=== PATIENT | female | born 1945 | race Caucasian/White ===

== ENCOUNTER → 2016-11-10 | Outpatient (CLI) | payer MEDICARE, BC ==
--- NOTE | 2016-11-10 17:52 | US ---
EXAMINATION TYPE: US carotid duplex BILAT DATE OF EXAM: 11/10/2016 5:18 PM COMPARISON: NONE CLINICAL HISTORY: I65.22 CAROTID STENOSIS. Bruit EXAM MEASUREMENTS: RIGHT: Peak Systolic Velocity (PSV) cm/sec ----- Right CCA: 93.9 ----- Right ICA: 95.6 ----- Right ECA: 103.0 ICA/CCA ratio: 1.0 RIGHT: End Diastole cm/sec ----- Right CCA: 19.8 ----- Right ICA: 38.7 ----- Right ECA: 11.1 LEFT: Peak Systolic Velocity (PSV) cm/sec ----- Left CCA: 97.8 ----- Left ICA: 95.3 ----- Left ECA: 91.9 ICA/CCA ratio: 1.0 LEFT: End Diastole cm/sec ----- Left CCA: 24.1 ----- Left ICA: 20.2 ----- Left ECA: 14.9 VERTEBRALS (direction of flow): Right Vertebral: Antegrade Left Vertebral: Antegrade Bilateral wall thickening. Plaque seen in left bulb. No significant stenosis or elevated velocities . IMPRESSION: There is antegrade flow in the vertebral arteries. The images and measurements suggest 1 5-25% stenosis in both internal carotid arteries. Criteria for Assigning % of Stenosis / Diameter reduction (Estimation based on the indirect measurements of the internal carotid artery velocities (ICA PSV). 1. Normal (no stenosis)=ICA PSV < 125 cm/s: ratio < 2.0: ICA EDV<40 cm/s. 2. Less than 50% stenosis=ICA PSV < 125 cm/s: ratio < 2.0: ICA EDV<40 cm/s. 3. 50 to 69% stenosis=ICA PSV of 125 to 230 cm/s: ration 2.0 ? 4.0: ICA EDV 40-100 cm/s. 4. Greater than 70% stenosis to near occlusion= ICA PSV > 230 cm/s: ratio > 4.0: ICA EDV > 100 cm/s. 5. Near occlusion= ICA PSV velocities may be low or undetectable: variable ratio and ICA EDV. 6. Total occlusion=unable to detect flow.
== END | disposition home or self-care (01) ==
LOC: RADUSWWP 16:46
PROVIDERS: ATTEND Family Medicine
DX: I65.29 Occlusion and stenosis of unspecified carotid artery (principal)
CPT/HCPCS: 93880

== ENCOUNTER → 2017-06-21 | Outpatient (CLI) | payer MEDICARE, BC ==
--- NOTE | 2017-06-22 13:59 | MM ---
Reason for exam: screening (asymptomatic). Last mammogram was performed 1 year and 5 months ago. History: Patient is postmenopausal. Physical Findings: A clinical breast exam by your physician is recommended on an annual basis and results should be correlated with mammographic findings. MG 3D Screening Mammo W/Cad Bilateral CC and MLO view(s) were taken. Prior study comparison: February 03, 2016, bilateral MG 3d screening mammo w/cad. July 04, 2014, bilateral MG screening mammo w CAD. The breast tissue is almost entirely fat. Finding: There are typically benign vascular calcifications in both breasts. There is a chronic nodularity in the right breast. There is no discrete abnormality. ASSESSMENT: Benign, BI-RAD 2 RECOMMENDATION: Routine screening mammogram of both breasts in 1 year.
== END | disposition home or self-care (01) ==
LOC: RADMAMWWP 07:49
PROVIDERS: ATTEND Obstetrics & Gynecology
DX: Z12.31 Encounter for screening mammogram for malignant neoplasm of breast (principal)
CPT/HCPCS: 77063; G0202

== ENCOUNTER → 2018-06-28 | Outpatient (CLI) | payer MEDICARE, BC ==
--- NOTE | 2018-06-29 09:10 | MM ---
Reason for exam: screening (asymptomatic). Last mammogram was performed 1 year ago. History: Patient is postmenopausal. Physical Findings: A clinical breast exam by your physician is recommended on an annual basis and results should be correlated with mammographic findings. MG 3D Screening Mammo W/Cad Bilateral CC and MLO view(s) were taken. Prior study comparison: June 21, 2017, bilateral MG 3d screening mammo w/cad. February 03, 2016, bilateral MG 3d screening mammo w/cad. There are scattered fibroglandular densities. No suspicious abnormality. No significant changes when compared with prior studies. ASSESSMENT: Negative, BI-RAD 1 RECOMMENDATION: Routine screening mammogram of both breasts in 1 year.
== END | disposition home or self-care (01) ==
LOC: RADMAMWWP 13:48
PROVIDERS: ATTEND Family Medicine
DX: Z12.31 Encounter for screening mammogram for malignant neoplasm of breast (principal)
CPT/HCPCS: 77063; 77067

== ENCOUNTER → 2019-07-10 | Outpatient (CLI) | payer MEDICARE, BC ==
--- NOTE | 2019-07-10 10:08 | BD ---
EXAMINATION TYPE: Axial Bone Density DATE OF EXAM: 07/10/2019 COMPARISON: NONE CLINICAL HISTORY: Postmenopausal female, disorder of bone. Height: 5 FT 3 1/2 IN Weight: 135 FRAX RISK QUESTIONS: Alcohol (3 or more units per day): NO Family History (Parent hip fracture): NO Glucocorticoids (More than 3mos): NO (Ex: prednisone, prednisolone, methylprednisolone, dexamethasone, and hydrocortisone). History of Fracture in Adulthood: NO Secondary Osteoporosis: 1. Type 1 Diabetes: NO 2. Hyperthyroidism: NO 3. Menopause before 45: NO 4. Malnutrition: NO 5. Chronic liver disease: NO Rheumatoid Arthritis: NO Current Tobacco Use: NO RISK FACTORS HISTORY OF: Active: YES Postmenopausal woman: UNSURE APPROX 55 MEDICATIONS: Additional Medications: LOVASTATIN, ATTENOLOL Additional History: EXAM MEASUREMENTS: Bone mineral densitometry was performed using the [employer] System. Bone mineral density as measured about the Lumbar spine is: ----- L1-L4(G/cm2): 0.908 T Score Values are as follows: ----- L2: -2.7 ----- L3: -1.8 ----- L4: -2.1 ----- L1-L4: -2.3 Bone mineral density has: INCREASED 0.1 % since study of: 2015 Bone mineral density about the R hip (g/cm2): 0.688 Bone mineral density about the L hip (g/cm2): 0.663 T Score values are as follows: -----R Neck: -2.5 -----L Neck: -2.7 -----R Total: -2.5 -----L Total: -2.6 Bone mineral density has: DECREASED -5.5 % since study of: 2016 IMPRESSION: Osteoporosis (T Score less than -2.5) remains present. There remains increased fracture risk and therapy is usually indicated based on age. Re-Screen 1-2 years. NOTE: T-SCORE=SD OF THE YOUNG ADULT MEAN.
== END | disposition home or self-care (01) ==
LOC: RADBDWWP 09:13
PROVIDERS: ATTEND Obstetrics & Gynecology
DX: M81.0 Age-related osteoporosis without current pathological fracture (principal); Z78.0 Asymptomatic menopausal state
CPT/HCPCS: 77080

== ENCOUNTER → 2019-07-22 | Outpatient (CLI) | payer MEDICARE, BC ==
--- NOTE | 2019-07-22 11:59 | MM ---
Reason for exam: screening (asymptomatic). Last mammogram was performed 1 year and 1 month ago. History: Patient is postmenopausal. Physical Findings: A clinical breast exam by your physician is recommended on an annual basis and results should be correlated with mammographic findings. MG 3D Screening Mammo W/Cad Bilateral CC and MLO view(s) were taken. Prior study comparison: June 28, 2018, bilateral MG 3d screening mammo w/cad. June 21, 2017, bilateral MG 3d screening mammo w/cad. There are scattered fibroglandular densities. There are benign appearing vascular calcifications in the right breast. There is no discrete abnormality. ASSESSMENT: Benign, BI-RAD 2 RECOMMENDATION: Routine screening mammogram of both breasts in 1 year.
== END | disposition home or self-care (01) ==
LOC: RADMAMWWP 09:45
PROVIDERS: ATTEND Family Medicine
DX: Z12.31 Encounter for screening mammogram for malignant neoplasm of breast (principal)
CPT/HCPCS: 77063; 77067

== ENCOUNTER → 2021-01-04 | Outpatient (CLI) | payer MEDICARE, BC ==
--- NOTE | 2021-01-06 13:52 | MM ---
Reason for exam: screening (asymptomatic). Last mammogram was performed 1 year and 5 months ago. History: Patient is postmenopausal. Physical Findings: A clinical breast exam by your physician is recommended on an annual basis and results should be correlated with mammographic findings. MG 3D Screening Mammo W/Cad Bilateral CC and MLO view(s) were taken. Prior study comparison: July 22, 2019, bilateral MG 3d screening mammo w/cad. June 28, 2018, bilateral MG 3d screening mammo w/cad. There are scattered fibroglandular densities. ASSESSMENT: Negative, BI-RAD 1 RECOMMENDATION: Routine screening mammogram of both breasts in 1 year.
== END | disposition home or self-care (01) ==
LOC: RADMAMWWP 09:30
PROVIDERS: ATTEND Family Medicine
DX: Z12.31 Encounter for screening mammogram for malignant neoplasm of breast (principal); Z78.0 Asymptomatic menopausal state
CPT/HCPCS: 77063; 77067

== ENCOUNTER → 2022-07-13 | Outpatient (CLI) | payer MEDICARE, BC ==
--- NOTE | 2022-07-13 18:44 | MM ---
Reason for Exam: Screening (asymptomatic). Last mammogram was performed 1 year(s) and 6 month(s) ago. Patient History: Menarche at age 12. First Full-Term at age 19. Postmenopausal. Risk Values: Fany 5 year model risk: 1.3%. NCI Lifetime model risk: 2.6%. Prior Study Comparison: 06/28/2018 Bilateral Screening Mammogram, [facility]. 07/22/2019 Bilateral Screening Mammogram, [facility]. 01/04/2021 Bilateral Screening Mammogram, [facility]. Tissue Density: There are scattered fibroglandular densities. Findings: Analyzed By CAD. Pattern appears symmetrical and stable. Some benign vascular calcification is present. No suspicious groups of microcalcifications, spiculated or lobular masses, architectural distortion or other secondary signs of malignancy are mammographically apparent. Overall Assessment: Benign, BI-RAD 2 Management: Screening Mammogram of both breasts in 1 year. A negative mammogram report should not preclude additional follow up of suspicious palpable abnormalities. Patient should continue monthly self breast exam. A clinical breast exam by your physician is recommended on an annual basis and results should be correlated with mammographic findings. Electronically signed and approved by: Rodrigo Neville D.O. Radiologis
== END | disposition home or self-care (01) ==
LOC: RADMAMWWP 09:32
PROVIDERS: ATTEND Obstetrics & Gynecology
DX: Z12.31 Encounter for screening mammogram for malignant neoplasm of breast (principal); Z78.0 Asymptomatic menopausal state
CPT/HCPCS: 77063; 77067

== ENCOUNTER → 2022-08-19 | Outpatient (CLI) | payer MEDICARE, BC ==
--- NOTE | 2022-08-19 11:55 | US ---
EXAMINATION TYPE: US carotid duplex BILAT DATE OF EXAM: 08/19/2022 COMPARISON: NONE CLINICAL HISTORY: I65.23 OCCLUSION AND STENOSIS OF CAROTID ARTERIES. TECHNIQUE: Carotid duplex ultrasound examination. Indirect Doppler criteria was utilized. FINDINGS: EXAM MEASUREMENTS: RIGHT: Peak Systolic Velocity (PSV) cm/sec ----- Right CCA: 92.1 ----- Right ICA: 67.1 ----- Right ECA: 92.7 ICA/CCA ratio: 0.73 RIGHT: End Diastole cm/sec ----- Right CCA: 19.0 ----- Right ICA: 20.2 ----- Right ECA: 11.3 LEFT: Peak Systolic Velocity (PSV) cm/sec ----- Left CCA: 112 ----- Left ICA: 87.9 ----- Left ECA: 93.2 ICA/CCA ratio: 0.78 LEFT: End Diastole cm/sec ----- Left CCA: 19.6 ----- Left ICA: 27.3 ----- Left ECA: 10.7 VERTEBRALS (direction of flow): Right Vertebral: Antegrade Left Vertebral: Antegrade Rhythm: Normal HYDROTHERAPIST NOTES: Some bilateral intimal thickening. Some plaque within the left bulb/prox ICA. No significant stenosis seen. Intimal thickening is present. Some plaquing is within the left common carotid artery. No significant flow-limiting stenosis is evident. IMPRESSION: 1. Atheromatous plaquing without significant flow-limiting stenosis. Criteria for Assigning % of Stenosis / Diameter reduction (Estimation based on the indirect measurements of the internal carotid artery velocities (ICA PSV). 1. Normal (no stenosis)=ICA PSV < 125 cm/s: ratio < 2.0: ICA EDV<40 cm/s. 2. Less than 50% stenosis=ICA PSV < 125 cm/s: ratio < 2.0: ICA EDV<40 cm/s. 3. 50 to 69% stenosis=ICA PSV of 125 to 230 cm/s: ration 2.0 ? 4.0: ICA EDV 40-100 cm/s. 4. Greater than 70% stenosis to near occlusion= ICA PSV > 230 cm/s: ratio > 4.0: ICA EDV > 100 cm/s. 5. Near occlusion= ICA PSV velocities may be low or undetectable: variable ratio and ICA EDV. 6. Total occlusion=unable to detect flow.
== END | disposition home or self-care (01) ==
LOC: RADUSWWP 10:57
PROVIDERS: ATTEND Family Medicine
DX: I65.23 Occlusion and stenosis of bilateral carotid arteries (principal)
CPT/HCPCS: 93880

== ENCOUNTER 2023-04-01 00:31 | Inpatient (IN) | payer MEDICARE, BC ==
[2023-04-01] MEDS ORDERED: SODIUM CHLORIDE 0.9% 500 ML 500 ML IV STA (01:06)
[2023-04-01 01:43] LABS: ALT 77 U/L (4-34); African American GFR (CKD) >90 (>60 ml/min/1.73 sqM); Albumin 3.3 g/dL (3.5-5.0); Anion Gap 4 mmol/L; Blood Urea Nitrogen 22 mg/dL (7-17); Calcium 8.2 mg/dL (8.4-10.2); Carbon Dioxide 28 mmol/L (22-30); Chloride 106 mmol/L (98-107); Glucose 104 mg/dL (74-99); Non-African American GFR(CKD) 86 (>60 ml/min/1.73 sqM); Sodium 138 mmol/L (137-145); Total Bilirubin 0.5 mg/dL (0.2-1.3); Total Protein 5.9 g/dL (6.3-8.2)
[2023-04-01 01:48] LABS: Basophils % (A) 0 %; Eosinophils # (A) 0.3 k/uL (0-0.7); Eosinophils % (A) 4 %; HCT 35.7 % (34.0-46.0); HGB 11.8 gm/dL (11.4-16.0); Lymphocytes # (A) 2.3 k/uL (1.0-4.8); Lymphocytes % (A) 35 %; MCH 30.8 pg (25.0-35.0); MCV 93.3 fL (80.0-100.0); Mean Platelet Volume 8.4; Monocytes # (A) 0.3 k/uL (0-1.0); Monocytes % (A) 5 %; Neutrophils # (A) 3.7 k/uL (1.3-7.7); Neutrophils % (A) 54 %; Platelet Count 196 k/uL (150-450); RBC 3.83 m/uL (3.80-5.40); RDW 12.9 % (11.5-15.5); WBC 6.8 k/uL (3.8-10.6)
[2023-04-01 01:59] LABS: INR 0.9 (<1.2); Partial Thromboplastin Time 20.9 sec (22.0-30.0); Prothrombin Time 9.9 sec (9.0-12.0)
[2023-04-01 02:35] LABS: AST 217 U/L (14-36); Alkaline Phosphatase 143 U/L (38-126); Lipase >20000 U/L (23-300); Potassium 3.9 mmol/L (3.5-5.1)
--- NOTE | 2023-04-01 03:09 | ED ---
Abdominal Pain HPI - General Source: patient Mode of arrival: EMS Limitations: no limitations <Antonette Amezcua - Last Filed: 04/01/23 07:34> <Desmond Chen - Last Filed: 04/01/23 08:06> - General Chief Complaint: Abdominal Pain Stated Complaint: Chest Pain - History of Present Illness Initial Comments: 77-year-old female with past medical history of hypertension presents to the emergency department reporting epigastric pain. States that it awoke her from sleep. Is located in the central portion of her abdomen and radiates around to both flanks. She denies any chest pain or shortness of breath. No history of similar in the past. She not take anything for pain. EMS did provide the patient with Zofran, aspirin and fentanyl. Upon my evaluation the patient reports that she is completely pain-free. She denies peptic ulcer disease. No alcohol or NSAID use. Denies any numbness, tingling or weakness in her extremities. Did have one episode of vomiting which was nonbloody. Denies diarrhea, constipation, black or bloody stools. No dysuria, hematuria or difficulty voiding. No fevers. No other alleviating, precipitating or mo difying factors (Antonette Amezcua) - Related Data Home Medications Medication Instructions Recorded Confirmed Aspirin 81 mg PO DAILY 10/02/14 10/06/14 Atenolol/Chlorthalidone [Tenoretic 1 each PO DAILY 10/02/14 10/06/14 50 Tablet] Cetirizine HCl [Zyrtec] 10 mg PO DAILY PRN 10/02/14 10/06/14 Lovastatin [Mevacor] 20 mg PO HS 10/02/14 10/06/14 Allergies Allergy/AdvReac Type Severity Reaction Status Date / Time No Known Allergies Allergy Verified 10/02/14 15:24 Review of Systems ROS Other: All systems not noted in ROS Statement are negative. <Antonette Amezcua - Last Filed: 04/01/23 07:34> ROS Other: All systems not noted in ROS Statement are negative. <Desmond Chen - Last Filed: 04/01/23 08:06> ROS Statement: Those systems with pertinent positive or pertinent negative responses have been documented in the HPI. Past Medical History Past Medical History: Hypertension History of Any Multi-Drug Resistant Organisms: None Reported Past Surgical History: Orthopedic Surgery Additional Past Surgical History / Comment(s): LEFT SHOULDER SURGERY Past Anesthesia/Blood Transfusion Reactions: No Reported Reaction Past Psychological History: No Psychological Hx Reported Past Alcohol Use History: Occasional Past Drug Use History: None Reported - Past Family History Mother Family Medical History: Cancer <Antonette Amezcua Last Filed: 04/01/23 07:34> General Exam Limitations: no limitations General appearance: alert, in no apparent distress Head exam: Present: atraumatic, normocephalic, normal inspection Eye exam: Present: normal appearance, PERRL, EOMI. Absent: scleral icterus, conjunctival injection, periorbital swelling ENT exam: Present: normal exam, mucous membranes moist Neck exam: Present: normal inspection. Absent: meningismus, lymphadenopathy Respiratory exam: Present: normal lung sounds bilaterally. Absent: respiratory distress, wheezes, rales, rhonchi, stridor Cardiovascular Exam: Present: regular rate, normal rhythm, normal heart sounds. Absent: systolic murmur, diastolic murmur, rubs, gallop, clicks GI/Abdominal exam: Present: soft, tenderness (epigastric), normal bowel sounds. Absent: distended, guarding, rebound, rigid Extremities exam: Present: normal inspection, full ROM, normal capillary refill. Absent: tenderness, pedal edema, joint swelling, calf tenderness Back exam: Present: normal inspection Neurological exam: Present: alert, oriented X3, CN II-XII intact Psychiatric exam: Present: normal affect, normal mood Skin exam: Present: warm, dry, intact, normal color. Absent: rash <Antonette Amezcua - Last Filed: 04/01/23 07:34> Course Vital Signs 04/01/23 04/01/23 04/01/23 00:37 03:00 04:00 Temperature 97.7 F Pulse Rate 61 72 80 Respiratory 16 18 16 Rate Blood Pressure 136/63 105/61 141/67 O2 Sat by Pulse 97 97 Oximetry 04/01/23 06:00 Temperature Pulse Rate 61 Respiratory 16 Rate Blood Pressure 139/75 O2 Sat by Pulse 98 Oximetry Medical Decision Making - Lab Data Result diagrams: 04/01/23 01:08 04/01/23 01:08 <Antonette Amezcua - Last Filed: 04/01/23 07:34> - Lab Data Result diagrams: 04/01/23 01:08 04/01/23 01:08 <Desmond Chen - Last Filed: 04/01/23 08:06> - Medical Decision Making Was pt. sent in by a medical professional or institution (, [facility], [facility], urgent care, hospital, or [place] health [place] facility...) When possible be specific @ -No Did you speak to anyone other than the patient for history (EMS, parent, family, police, friend...)? What history was obtained from this source @ -EMS did provide history Did you review nursing and triage notes (agree or disagree)? Why? @ -I reviewed and agree with nursing and triage notes Were old charts reviewed (outside hosp., previous admission, EMS record, old EKG, old radiological studies, urgent care reports/EKG's, [place] health care facility records)? Report findings @ -No old charts were reviewed Differential Diagnosis (chest pain, altered mental status, abdominal pain women, abdominal pain men, vaginal bleeding, weakness, fever, dyspnea, syncope, headache, dizziness, GI bleed, back pain, seizure, CVA, palpatations, mental health, musculoskeletal)? @ -Differential Abdominal Pain Women: Appendicitis, Cholecystitis, diverticulosis, ischemic bowel, pancreatitis, hepatitis, UTI, gastroenteritis, AAA, incarcerated hernia, bowel obstruction, constipation, inflammatory bowel, hepatitis, peptic ulcer disease, splenic infarction, perforated viscus, vulvitis, ovarian torsion, PID, kidney stone, placenta abruption, this is not meant to be an all-inclusive list EKG interpreted by me (3pts min.). @ -Yes and demonstrates sinus bradycardia with a rate of 59. TN interval 170. QRS 88. QTC of 418. No acute ST segment elevations or depressions X-rays interpreted by me (1pt min.). @ -None done CT interpreted by me (1pt min.). @ -No U/S interpreted by me (1pt. min.). @ -None done What testing was considered but not performed or refused? (CT, X-rays, U/S, labs)? Why? @ -None What meds were considered but not given or refused? Why? @ -Pain meds however patient reports being pain-free at this time Did you discuss the management of the patient with other professionals (p mason i.e. , PA, [facility], lab, RT, psych nurse, psychiatric social worker supervisor, drug abuse program coordinator, teacher, operations officer trust department, community case manager)? Give summary @ -Dr. Chen will assume care for the patient Was smoking cessation discussed for >3mins.? @ -No Was critical care preformed (if so, how long)? @ -No Were there social determinants of health that impacted care today? How? (Homelessness, low income, unemployed, alcoholism, drug addiction, transportation, low edu. Level, literacy, decrease access to med. care, senior living, rehab)? @ -No Was there de-escalation of care discussed even if they declined (Discuss DNR or withdrawal of care, Hospice)? DNR status @ -No What co-morbidities impacted this encounter? (DM, HTN, Smoking, COPD, CAD, Cancer, CVA, ARF, Chemo, Hep., AIDS, mental health diagnosis, sleep apnea, morbid obesity)? @ -None Was patient admitted / discharged? Hospital course, mention meds given and route, prescriptions, significant lab abnormalities, going to OR and other pertinent info. @ -Upon arrival patient was placed into room 3. There are history and physical exam was performed. IV access had been established by EMS. I studies are conducted. Remarkable for a lipase greater than 20,000. CT is performed and pending results at this time. Patient will be signed out to Dr. Chen Undiagnosed new problem with uncertain prognosis? @ -yes Drug Therapy requiring intensive monitoring for toxicity (Heparin, Nitro, Insulin, Cardizem)? @ -No Were any procedures done? @ -No Diagnosis/symptom? @ -Acute epigastric pain, acute pancreatitis (Antonette Amezcua) CT report discussed with radiologist. There is a questionable fluid collection. Patient reevaluated. Patient resting comfortably in bed abdomen soft with minimal epigastric tenderness. Patient is updated on results and plan. Case was discussed with Dr. De La Rosa, who will admit For Dr. yen. Surgery will be placed on consult to review computed tomography scan. Patient may need computed tomography scan repeated with delayed oral contrast however this will be deferred to surgeon. Admission orders written. (Desmond Chen) - Lab Data Lab Results 04/01/23 04/01/23 04/01/23 Range/Units 01:08 01:08 01:08 WBC 6.8 (3.8-10.6) k/uL RBC 3.83 (3.80-5.40) m/uL Hgb 11.8 (11.4-16.0) gm/dL Hct 35.7 (34.0-46.0) % MCV 93.3 (80.0-100.0) fL MCH 30.8 (25.0-35.0) pg MCHC 33.0 (31.0-37.0) g/dL RDW 12.9 (11.5-15.5) % Plt Count 196 (150-450) k/uL MPV 8.4 Neutrophils % 54 % Lymphocytes % 35 % Monocytes % 5 % Eosinophils % 4 % Basophils % 0 % Neutrophils # 3.7 (1.3-7.7) k/uL Lymphocytes # 2.3 (1.0-4.8) k/uL Monocytes # 0.3 (0-1.0) k/uL Eosinophils # 0.3 (0-0.7) k/uL Basophils # 0.0 (0-0.2) k/uL PT 9.9 (9.0-12.0) sec INR 0.9 (<1.2) APTT 20.9 L (22.0-30.0) sec Sodium 138 (137-145) mmol/L Potassium 3.9 (3.5-5.1) mmol/L Chloride 106 (98-107) mmol/L Carbon Dioxide 28 (22-30) mmol/L Anion Gap 4 mmol/L BUN 22 H (7-17) mg/dL Creatinine 0.65 (0.52-1.04) mg/dL Est GFR (CKD-EPI)AfAm >90 (>60 ml/min/1.73 sqM) Est GFR (CKD-EPI)NonAf 86 (>60 ml/min/1.73 sqM) Glucose 104 H (74-99) mg/dL Plasma Lactic Acid Yusef (0.7-2.0) mmol/L Calcium 8.2 L (8.4-10.2) mg/dL Total Bilirubin 0.5 (0.2-1.3) mg/dL AST 217 H (14-36) U/L ALT 77 H (4-34) U/L Alkaline Phosphatase 143 H (38-126) U/L Troponin I (0.000-0.034) ng/mL Total Protein 5.9 L (6.3-8.2) g/dL Albumin 3.3 L (3.5-5.0) g/dL Lipase >18925 H (23-300) U/L 04/01/23 04/01/23 Range/Units 01:08 01:27 WBC (3.8-10.6) k/uL RBC (3.80-5.40) m/uL Hgb (11.4-16.0) gm/dL Hct (34.0-46.0) % MCV (80.0-100.0) fL MCH (25.0-35.0) pg MCHC (31.0-37.0) g/dL RDW (11.5-15.5) % Plt Count (150-450) k/uL MPV Neutrophils % % Lymphocytes % % Monocytes % % Eosinophils % % Basophils % % Neutrophils # (1.3-7.7) k/uL Lymphocytes # (1.0-4.8) k/uL Monocytes # (0-1.0) k/uL Eosinophils # (0-0.7) k/uL Basophils # (0-0.2) k/uL PT (9.0-12.0) sec INR (<1.2) APTT (22.0-30.0) sec Sodium (137-145) mmol/L Potassium (3.5-5.1) mmol/L Chloride (98-107) mmol/L Carbon Dioxide (22-30) mmol/L Anion Gap mmol/L BUN (7-17) mg/dL Creatinine (0.52-1.04) mg/dL Est GFR (CKD-EPI)AfAm (>60 ml/min/1.73 sqM) Est GFR (CKD-EPI)NonAf (>60 ml/min/1.73 sqM) Glucose (74-99) mg/dL Plasma Lactic Acid Yusef 1.0 (0.7-2.0) mmol/L Calcium (8.4-10.2) mg/dL Total Bilirubin (0.2-1.3) mg/dL AST (14-36) U/L ALT (4-34) U/L Alkaline Phosphatase (38-126) U/L Troponin I <0.012 (0.000-0.034) ng/mL Total Protein (6.3-8.2) g/dL Albumin (3.5-5.0) g/dL Lipase (23-300) U/L Disposition <Antonette Amezcua - Last Filed: 04/01/23 07:34> Is patient prescribed a controlled substance at d/c from ED?: No Time of Disposition: 08:06 <Desmond Chen - Last Filed: 04/01/23 08:06> Clinical Impression: Pancreatitis Disposition: ADMITTED IP TO THIS HOSP Referrals: Constance Olson MD [Primary Care Provider] - 1-2 days
[2023-04-01] MEDS ORDERED: SODIUM CHLORIDE 0.9% 1,000 ML IV ONE (05:07)
--- NOTE | 2023-04-01 07:48 | CT ---
EXAMINATION TYPE: CT abdomen pelvis w con DATE OF EXAM: 04/01/2023 COMPARISON: None INDICATION: Epigastric pain radiating to back DLP: 739.9 mGycm, Automated exposure control for dose reduction was used. CONTRAST: 100 mL of Isovue 300. Study performed without Oral Contrast TECHNIQUE: Axial images were obtained from above the diaphragm to the pubic rami in the axial plane a t 5 mm thick sections. Reconstructed images are reviewed on the computer in the coronal plane. FINDINGS: Limited CT sections are obtained the lung bases. The lung bases are clear. CT ABDOMEN: There is a loop of bowel which appears to contain fecal debris anterior to the right kidn ey and adjacent to duodenum. This loop is difficult to track is a loop of colon. Abscess formation co uld be considered. Adjacent inflammatory changes however are not identified. Consider follow-up CT wi th oral contrast for confirmation. Report was called to the emergency room physician Dr. Chen by Dr. Neville by telephone at the time of interpretation. The case was discussed. Additional history is no elevated white count, mildly elevated liver enzymes with elevated lipase. Liver: Normal Spleen: Normal Pancreas: Normal, no suspicious fluid collections or cysts are evident. Adrenal glands: The adrenal glands are normal. Gallbladder: Normal Kidneys: No masses are evident. No hydronephrosis is present. No cysts are present. Delayed images were obtained through the kidneys, which remain unremarkable. Aorta: Vascular calcification is within the aorta. Inferior vena cava: Normal. CT PELVIS: Fecal debris is throughout the colon. There are scattered diverticuli present. Inflammatory changes a djacent to suggest acute diverticulitis are not identified. No suspicious dilated loops of bowel. Gibson dies without oral contrast limiting bowel evaluation. Appendix: Normal as visualized. Urinary bladder: Normal. Genitourinary structures: Uterus is normal. Adnexa are unremarkable. Osseous structures: No suspicious lytic or sclerotic lesions. IMPRESSION: 1. Probable loop of: Right upper quadrant. Abscess is considered lower on the differential. 2. Moderate fecal retention throughout the colon.
[2023-04-01] MEDS ORDERED: ONDANSETRON 4 MG/2 ML VIAL IVP PRN (08:02)
[2023-04-01] MEDS ORDERED: MORPHINE SULFATE 4 MG/ML SYRINGE IV PRN (08:02)
[2023-04-01] MEDS ORDERED: NALOXONE 0.4 MG/ML 1 ML VIAL IV PRN (08:02)
[2023-04-01] MEDS: SODIUM CHLORIDE 0.9% 1,000 ML IV SCH ×2 (10:23→22:36)
[2023-04-01] MEDS: PANTOPRAZOLE 40 MG/10 ML VIAL IV SCH (10:28)
--- NOTE | 2023-04-01 14:25 | P.GSCN ---
History of Present Illness Consult date: 04/01/23 History of present illness: She reports acute onset epigastric pain when she came to the ER after eating peanuts and spaghetti. She had similar event over 3 to 6 months ago cannot recollect inciting factors. She reports the acute sharp pain has subsided but still has a dull ache. She has her gallbladder. No new medications in the last [address] reviewed and labs consistent with acute pancreatitis. Recommend US gallbladder. May need repeat CT with oral contrast pending results of US. Care plan reviewed with patient and family at bedside. Past Medical History Past Medical History: Hypertension History of Any Multi-Drug Resistant Organisms: None Reported Past Surgical History: Orthopedic Surgery Additional Past Surgical History / Comment(s): LEFT SHOULDER SURGERY Past Anesthesia/Blood Transfusion Reactions: No Reported Reaction Past Psychological History: No Psychological Hx Reported Past Alcohol Use History: Occasional Past Drug Use History: None Reported - Past Family History Mother Family Medical History: Cancer Medications and Allergies Home Medications Medication Instructions Recorded Confirmed Type Aspirin EC [Ecotrin Low Dose] 81 mg PO DAILY 04/01/23 04/01/23 History Lovastatin [Mevacor] 40 mg PO HS 04/01/23 04/01/23 History Vit C/E/Zn/Coppr/Lutein/Zeaxan 1 cap PO BID 04/01/23 04/01/23 History [Preservision Areds 2 Softgel] atenoloL [Tenormin] 25 mg PO BID 04/01/23 04/01/23 History Allergies Allergy/AdvReac Type Severity Reaction Status Date / Time No Known Allergies Allergy Verified 04/01/23 11:56 Surgical - Exam Vital Signs Temp Pulse Resp BP 97.7 F 61 16 136/63 04/01/23 00:37 04/01/23 00:37 04/01/23 00:37 04/01/23 00:37 Results - Labs 04/01/23 01:08 04/01/23 01:08 Abnormal Lab Results - Last 24 Hours (Table) 04/01/23 04/01/23 Range/Units 01:08 01:08 APTT 20.9 L (22.0-30.0) sec BUN 22 H (7-17) mg/dL Glucose 104 H (74-99) mg/dL Calcium 8.2 L (8.4-10.2) mg/dL AST 217 H (14-36) U/L ALT 77 H (4-34) U/L Alkaline Phosphatase 143 H (38-126) U/L Total Protein 5.9 L (6.3-8.2) g/dL Albumin 3.3 L (3.5-5.0) g/dL Lipase >58048 H (23-300) U/L Diabetes panel 04/01/23 Range/Units 01:08 Sodium 138 (137-145) mmol/L Potassium 3.9 (3.5-5.1) mmol/L Chloride 106 (98-107) mmol/L Carbon Dioxide 28 (22-30) mmol/L BUN 22 H (7-17) mg/dL Creatinine 0.65 (0.52-1.04) mg/dL Glucose 104 H (74-99) mg/dL Calcium 8.2 L (8.4-10.2) mg/dL AST 217 H (14-36) U/L ALT 77 H (4-34) U/L Alkaline Phosphatase 143 H (38-126) U/L Total Protein 5.9 L (6.3-8.2) g/dL Albumin 3.3 L (3.5-5.0) g/dL Calcium panel 04/01/23 Range/Units 01:08 Calcium 8.2 L (8.4-10.2) mg/dL Albumin 3.3 L (3.5-5.0) g/dL Pituitary panel 04/01/23 Range/Units 01:08 Sodium 138 (137-145) mmol/L Potassium 3.9 (3.5-5.1) mmol/L Chloride 106 (98-107) mmol/L Carbon Dioxide 28 (22-30) mmol/L BUN 22 H (7-17) mg/dL Creatinine 0.65 (0.52-1.04) mg/dL Glucose 104 H (74-99) mg/dL Calcium 8.2 L (8.4-10.2) mg/dL Adrenal panel 04/01/23 Range/Units 01:08 Sodium 138 (137-145) mmol/L Potassium 3.9 (3.5-5.1) mmol/L Chloride 106 (98-107) mmol/L Carbon Dioxide 28 (22-30) mmol/L BUN 22 H (7-17) mg/dL Creatinine 0.65 (0.52-1.04) mg/dL Glucose 104 H (74-99) mg/dL Calcium 8.2 L (8.4-10.2) mg/dL Total Bilirubin 0.5 (0.2-1.3) mg/dL AST 217 H (14-36) U/L ALT 77 H (4-34) U/L Alkaline Phosphatase 143 H (38-126) U/L Total Protein 5.9 L (6.3-8.2) g/dL Albumin 3.3 L (3.5-5.0) g/dL
--- NOTE | 2023-04-01 16:22 | US ---
EXAMINATION TYPE: US gallbladder DATE OF EXAM: 04/01/2023 COMPARISON: NONE CLINICAL INDICATION: Female, 77 years old with history of Right upper quadrant pain and pancreatitis; Pancreatitis, nausea/vomiting, epigastric pain TECHNIQUE: Multiple sonographic images of the right upper quadrant are obtained. FINDINGS: EXAM MEASUREMENTS: Liver Length: 11.7 cm Gallbladder Wall: 0.3 cm CBD: 0.6 cm Right Kidney: 9.5 x 4.0 x 4.2 cm Pancreas: Tail obscured by overlying bowel gas. Pancreas is visualized appears within normal limits. Liver: appears wnl Gallbladder: no evidence of stones gallbladder is borderline thickened. Evidence for sonographic Oquendo's sign: no CBD: upper limits of normal Right Kidney: no evidence of hydronephrosis IMPRESSION: 1. There may be minimal thickening of the gallbladder wall. Correlate for acute cholecystitis. Additi onal secondary signs to suggest acute cholecystitis are not present exam.
--- NOTE | 2023-04-01 16:27 | P.HPIM ---
History of Present Illness H&P Date: 04/01/23 Judith Patel, is a 77-year-old female who presented to [facility] emergency room with a chief complaint of abdominal pain. She was evaluated in the emergency room vital examination on presentation revealed a temperature of 97.7 pulse 61 respiration 16 blood pressure 136/63 pulse ox 98% on room air Laboratory data revealed a white blood count of 6.8 hemoglobin 11.8 platelet count 196 BUN 22 creatinine 0.65 AST elevated at 217 ALT 77 alkaline phosphatase 143 and lipase level was significantly elevated at more than 20,000 Testing in the emergency room revealed computed tomography scan of the abdomen and pelvis revealed dilated bowel loop in the right upper quadrant. Patient was admitted to medical floor for further evaluation and treatment Past Medical History Past Medical History: Hypertension History of Any Multi-Drug Resistant Organisms: None Reported Past Surgical History: Orthopedic Surgery Additional Past Surgical History / Comment(s): LEFT SHOULDER SURGERY Past Anesthesia/Blood Transfusion Reactions: No Reported Reaction Past Psychological History: No Psychological Hx Reported Past Alcohol Use History: Occasional Past Drug Use History: None Reported - Past Family History Mother Family Medical History: Cancer Medications and Allergies Home Medications Medication Instructions Recorded Confirmed Type Aspirin EC [Ecotrin Low Dose] 81 mg PO DAILY 04/01/23 04/01/23 History Lovastatin [Mevacor] 40 mg PO HS 04/01/23 04/01/23 History Vit C/E/Zn/Coppr/Lutein/Zeaxan 1 cap PO BID 04/01/23 04/01/23 History [Preservision Areds 2 Softgel] atenoloL [Tenormin] 25 mg PO BID 04/01/23 04/01/23 History Allergies Allergy/AdvReac Type Severity Reaction Status Date / Time No Known Allergies Allergy Verified 04/01/23 11:56 Physical Exam Vitals: Vital Signs Temp Pulse Resp BP Pulse Ox 04/01/23 14:10 74 16 157/60 97 04/01/23 11:06 72 16 98 04/01/23 10:31 66 18 167/76 99 04/01/23 06:00 61 16 139/75 98 04/01/23 04:00 80 16 141/67 97 04/01/23 03:00 72 18 105/61 97 04/01/23 00:37 97.7 F 61 16 136/63 Intake and Output 04/01/23 04/01/23 04/01/23 06:59 14:59 22:59 Other: Weight 60.781 kg In general patient is alert and oriented x 3 in no distress HEENT head normocephalic and atraumatic Neck is supple no JVD no goiter no lymphadenopathy no carotid bruit Chest examination is clear to auscultation no crackles no wheezing Cardiac exam reveals regular heart sounds S1 and S2 no gallops no murmurs Abdomen is soft nontender no organomegaly with normal bowel sounds Extremity exam reveals no edema no cyanosis or clubbing Neurological examination reveals no gross focal deficits Results CBC & Chem 7: 04/01/23 01:08 04/01/23 01:08 Labs: Abnormal Lab Results - Last 24 Hours (Table) 04/01/23 04/01/23 Range/Units 01:08 01:08 APTT 20.9 L (22.0-30.0) sec BUN 22 H (7-17) mg/dL Glucose 104 H (74-99) mg/dL Calcium 8.2 L (8.4-10.2) mg/dL AST 217 H (14-36) U/L ALT 77 H (4-34) U/L Alkaline Phosphatase 143 H (38-126) U/L Total Protein 5.9 L (6.3-8.2) g/dL Albumin 3.3 L (3.5-5.0) g/dL Lipase >79930 H (23-300) U/L Assessment and Plan Plan: Abdominal pain, with elevated AST ALT, alkaline phosphatase, and significant elevation in lipase. Likely diagnosis is acute pancreatitis related to common bile duct stone. No stone is identified on computed tomography scan, ultrasound of the abdomen was ordered. Recheck labs in a.m.. Other differential diagnosis include common bile duct malignancy, abdominal abscess, but those are much less likely, will continue to follow closely with labs and possible repeat computed tomography scan of the abdomen. Underlying history of hypertension, maintained on Tenormin 25 mg by mouth twice a day we will continue Underlying history of hyperlipidemia maintained on lovastatin Will hold at this time Previous history of bilateral carotid stenosis Previous history of vitamin D deficiency Previous history of osteoporosis At this time patient is admitted to medical floor Surgical consultation was requested Clear liquid diet Repeat labs in a.m. Will follow closely
[2023-04-01] MEDS: atenoloL 25 MG TAB PO SCH (20:00)
[2023-04-02] MEDS: atenoloL 25 MG TAB PO SCH ×2 (09:07→19:48)
[2023-04-02] MEDS: PANTOPRAZOLE 40 MG/10 ML VIAL IV SCH (09:07)
[2023-04-02] MEDS: ASPIRIN 81 MG PO SCH (09:07)
[2023-04-02 09:22] LABS: Basophils # (A) 0.01 X 10*3/uL (0.00-0.10); Basophils % (A) 0.2 %; Eosinophils # (A) 0.18 X 10*3/uL (0.04-0.35); Eosinophils % (A) 3.3 %; HCT 32.5 % (37.2-46.3); HGB 10.6 d/dL (12.0-15.0); Lymphocytes # (A) 1.69 X 10*3/uL (0.90-5.00); Lymphocytes % (A) 31.2 %; MCH 30.4 pg (27.0-32.0); MCHC 32.6 d/dL (32.0-37.0); MCV 93.1 FL (80.0-97.0); Mean Platelet Volume 10.9 FL (9.5-12.2); Monocytes # (A) 0.54 X 10*3/uL (0.20-1.00); NRBC Per 100 WBC 0 X 10*3/uL (0.00-0.01); Neutrophils # (A) 2.98 X 10*3/uL (1.80-7.70); Neutrophils % (A) 55.1 %; Platelet Count 181 X 10*3/uL (140-440); RBC 3.49 X 10*6/uL (4.10-5.20); RDW 13.3 % (11.5-14.5); WBC 5.41 X 10*3/uL (4.50-10.00)
[2023-04-02 09:39] LABS: ALT 121 U/L (8-44); AST 105 U/L (13-35); Albumin 3.5 d/dL (3.8-4.9); Albumin/Globulin Ratio 2.06 Ratio (1.60-3.17); Alkaline Phosphatase 128 U/L (41-126); BUN/Creat Ratio 14.33 Ratio (12.00-20.00); Blood Urea Nitrogen 8.6 mg/dL (9.0-27.0); Calcium 8.6 mg/dL (8.7-10.3); Carbon Dioxide 26.8 mmol/L (21.6-31.8); Chloride 110 mmol/L (96-109); Globulin 1.7 d/dL (1.6-3.3); Glucose 88 mg/dL (70-110); LDH 183 U/L (120-246); Potassium 3.7 mmol/L (3.5-5.5); Sodium 144 mmol/L (135-145); Total Bilirubin 0.3 mg/dL (0.3-1.2); Total Protein 5.2 d/dL (6.2-8.2)
[2023-04-02 09:51] LABS: Lipase 432 U/L (14-63)
--- NOTE | 2023-04-02 10:15 | P.PN ---
Subjective Progress Note Date: 04/02/23 Judith Patel, is a 77-year-old female who presented to [facility] emergency room with a chief complaint of abdominal pain. She was evaluated in the emergency room vital examination on presentation revealed a temperature of 97.7 pulse 61 respiration 16 blood pressure 136/63 pulse ox 98% on room air Laboratory data revealed a white blood count of 6.8 hemoglobin 11.8 platelet count 196 BUN 22 creatinine 0.65 AST elevated at 217 ALT 77 alkaline phosphatase 143 and lipase level was significantly elevated at more than 20,000 Testing in the emergency room revealed computed tomography scan of the abdomen and pelvis revealed dilated bowel loop in the right upper quadrant. Patient was admitted to medical floor for further evaluation and treatment On 04/02/2023 patient is alert and oriented 3. Patient denies any further episodes of abdominal discomfort has been tolerating a clear liquid diet at the nausea and vomiting. Patient reports she had normal bowel movement burning with urination. Repeat labs this a.m. revealing AST 105, ALT 121 and phosphatase 128. Lipase 432. Surgical services are following. Gallbladder ultrasound completed and showing minimum thickening of gallbladder wall correlate for acute cholecystitis. At this time due to continued elevated liver enzymes will order MRCP and consult GI services Objective - Vital Signs Vital signs: Vital Signs Temp 98.5 F 04/02/23 07:00 Pulse 65 04/02/23 07:00 Resp 14 04/02/23 07:00 BP 115/75 04/02/23 07:00 Pulse Ox 96 04/02/23 07:00 FiO2 Intake & Output 04/01/23 04/02/23 04/02/23 18:59 06:59 18:59 Intake Total 300 Balance 300 Weight 60.781 kg Intake: Oral 300 Other: # Voids 2 - Exam In general patient is alert and oriented x 3 in no distress HEENT head normocephalic and atraumatic Neck is supple no JVD no goiter no lymphadenopathy no carotid bruit Chest examination is clear to auscultation no crackles no wheezing Cardiac exam reveals regular heart sounds S1 and S2 no gallops no murmurs Abdomen is soft nontender no organomegaly with normal bowel sounds Extremity exam reveals no edema no cyanosis or clubbing Neurological examination reveals no gross focal deficits - Labs CBC & Chem 7: 04/02/23 05:12 04/02/23 05:12 Labs: Abnormal Lab Results - Last 24 Hours (Table) 04/02/23 04/02/23 Range/Units 05:12 05:12 RBC 3.49 L (4.10-5.20) X 10*6/uL Hgb 10.6 L (12.0-15.0) d/dL Hct 32.5 L (37.2-46.3) % Chloride 110 H (96-109) mmol/L BUN 8.6 L (9.0-27.0) mg/dL Calcium 8.6 L (8.7-10.3) mg/dL AST 105 H (13-35) U/L ALT 121 H (8-44) U/L Alkaline Phosphatase 128 H (41-126) U/L Total Protein 5.2 L (6.2-8.2) d/dL Albumin 3.5 L (3.8-4.9) d/dL Lipase 432 H (14-63) U/L Assessment and Plan Plan: Abdominal pain, with elevated AST ALT, alkaline phosphatase, and significant elevation in lipase. Likely diagnosis is acute pancreatitis related to common bile duct stone. No stone is identified on computed tomography scan, ultrasound of the abdomen was ordered. Recheck labs in a.m.. Other differential diagnosis include common bile duct malignancy, abdominal abscess, but those are much less likely, will continue to follow closely with labs and possible repeat computed tomography scan of the abdomen. Acute cholecystitis Underlying history of hypertension, maintained on Tenormin 25 mg by mouth twice a day we will continue Underlying history of hyperlipidemia maintained on lovastatin Will hold at this time Previous history of bilateral carotid stenosis Previous history of vitamin D deficiency Previous history of osteoporosis At this time patient is admitted to medical floor Surgical consultation was requested Clear liquid diet MRCP ordered GI services consulted Repeat labs in a.m. Will follow closely
[2023-04-02] MEDS: SODIUM CHLORIDE 0.9% 1,000 ML IV SCH (10:30)
[2023-04-02 10:44] LABS: Amylase 310 U/L (23-121)
--- NOTE | 2023-04-02 14:10 | P.PN ---
Subjective Progress Note Date: 04/02/23 She reports feeling better today. Family at bedside. US gallbladder demonstrating possible cholecystitis. LABS: Lipase moderately improved. PLAN: 1. Agree with MRCP for risk of gallstone induced pancreatitis given clinical picture Objective - Vital Signs Vital signs: Vital Signs Temp 98.5 F 04/02/23 07:00 Pulse 65 04/02/23 07:00 Resp 14 04/02/23 07:00 BP 115/75 04/02/23 07:00 Pulse Ox 96 04/02/23 07:00 FiO2 Intake & Output 04/01/23 04/02/23 04/02/23 18:59 06:59 18:59 Intake Total 300 Balance 300 Weight 60.781 kg Intake: Oral 300 Other: # Voids 2 2 - Labs CBC & Chem 7: 04/02/23 05:12 04/02/23 05:12 Labs: Abnormal Lab Results - Last 24 Hours (Table) 04/02/23 04/02/23 Range/Units 05:12 05:12 RBC 3.49 L (4.10-5.20) X 10*6/uL Hgb 10.6 L (12.0-15.0) d/dL Hct 32.5 L (37.2-46.3) % Chloride 110 H (96-109) mmol/L BUN 8.6 L (9.0-27.0) mg/dL Calcium 8.6 L (8.7-10.3) mg/dL AST 105 H (13-35) U/L ALT 121 H (8-44) U/L Alkaline Phosphatase 128 H (41-126) U/L Total Protein 5.2 L (6.2-8.2) d/dL Albumin 3.5 L (3.8-4.9) d/dL Amylase 310 H* (23-121) U/L Lipase 432 H (14-63) U/L
[2023-04-03] MEDS: SODIUM CHLORIDE 0.9% 1,000 ML IV SCH ×2 (00:12→14:37)
[2023-04-03 08:35] VITALS: RESP 18
[2023-04-03 08:37] LABS: Basophils # (A) 0.01 X 10*3/uL (0.00-0.10); Basophils % (A) 0.2 %; Eosinophils % (A) 3.7 %; HCT 34.3 % (37.2-46.3); HGB 11.2 d/dL (12.0-15.0); Lymphocytes # (A) 1.65 X 10*3/uL (0.90-5.00); Lymphocytes % (A) 30.5 %; MCH 30.2 pg (27.0-32.0); MCHC 32.7 d/dL (32.0-37.0); MCV 92.5 FL (80.0-97.0); Mean Platelet Volume 10.8 FL (9.5-12.2); Monocytes # (A) 0.55 X 10*3/uL (0.20-1.00); Monocytes % (A) 10.2 %; NRBC Per 100 WBC 0 X 10*3/uL (0.00-0.01); Neutrophils # (A) 2.99 X 10*3/uL (1.80-7.70); Neutrophils % (A) 55.2 %; Platelet Count 184 X 10*3/uL (140-440); RBC 3.71 X 10*6/uL (4.10-5.20); RDW 13.1 % (11.5-14.5); WBC 5.41 X 10*3/uL (4.50-10.00)
[2023-04-03 08:54] LABS: ALT 93 U/L (8-44); AST 67 U/L (13-35); Albumin 3.7 d/dL (3.8-4.9); Albumin/Globulin Ratio 2.06 Ratio (1.60-3.17); Alkaline Phosphatase 130 U/L (41-126); BUN/Creat Ratio 10.83 Ratio (12.00-20.00); Blood Urea Nitrogen 6.5 mg/dL (9.0-27.0); Carbon Dioxide 29.6 mmol/L (21.6-31.8); Chloride 106 mmol/L (96-109); Globulin 1.8 d/dL (1.6-3.3); Glucose 85 mg/dL (70-110); Potassium 4.1 mmol/L (3.5-5.5); Sodium 143 mmol/L (135-145); Total Bilirubin 0.4 mg/dL (0.3-1.2); Total Protein 5.5 d/dL (6.2-8.2)
[2023-04-03] MEDS: atenoloL 25 MG TAB PO SCH (09:31)
[2023-04-03] MEDS: PANTOPRAZOLE 40 MG/10 ML VIAL IV SCH (09:31)
[2023-04-03] MEDS: ASPIRIN 81 MG PO SCH (09:31)
--- NOTE | 2023-04-03 11:15 | P.CRDCN ---
History of Present Illness Consult date: 04/03/23 History of present illness: History of Present Illness: The patient is a 77-year-old female with known history of hypertension, hyperlipidemia who presented with nausea and vomiting and abdominal discomfort. Was diagnosed with pancreatitis and evidence of cholecystitis. She is scheduled to undergo MRCP today. Cardiac-astorga she is stable, she continues to be active p hysically without any anginal pain, dyspnea on exertion, dizziness or palpitations. She has no PND, orthopnea or peripheral edema. She has underwent an MPI in January 2021 that showed no evidence of stress-induced ischemia and her left ventricle systolic function in November 2021 showed a normal left ventricle size and systolic function with mild mitral and tricuspid regurgitation. She has no prior history of myocardial infarction or heart failure. She has a history of hypertension and hyperlipidemia. She is a non-smoker. She has been in sinus mechanism since her admission. On presentation her AST was 217 ALT of 77 and lipase over 20,000, down to 432 yesterday. Her liver function tests have improved as well. Her troponin was normal on presentation. She has been feeling out of over the last 48 hours. Medications: Atenolol 25 mg twice a day, aspirin once a day, lovastatin 40 mg daily Review of Systems: Respiratory: No history of asthma, bronchitis or recent cough. GI: She has the abdominal pain, nausea and vomiting during this admission but no prior history of cholecystitis. She has no history of significant alcohol intake. : No hematuria or dysuria. Nervous System: No stroke or seizure. Physical Examination: 77-year-old female, alert and oriented no apparent distress ,Blood pressure 135/68, Heart rate 70 Head: Normocephalic. Eyes: Sclerae nonicteric. Neck: Good carotid upstroke, no bruit, no jugular venous distention. Lungs: Clear to auscultation. Heart: Regular rate and rhythm, S1-S2, no S3, no rub. Systolic ejection murmur. Abdomen: Soft nontender, positive bowel sounds no organomegaly. Extremities: No edema, intact distal pulses. Labs: Hemoglobin 11.2, WBC 5.41. BUN 6.5, creatinine 0.6. Calcium 9 AST 67 ALT 93, alk phos 130. Lipase yesterday down to 432. Gallbladder ultrasound revealed minimal thickening of the gallbladder wall was evidence to suggest acute cholecystitis. Computed tomography scan of the abdomen showed no abnormalities in the gallbladder. EKG: Sinus mechanism, rate of 59 with no evidence of acute ST segment changes. Impression: 1. Acute pancreatitis probably secondary to acute cholecystitis 2. History of hypertension 3. History of hyperlipidemia 4. Prior history of ventricular ectopic activity, stable Plan: 1. The patient is stable from the cardiac standpoint, no cardiac workup is needed at this time 2. Continue beta roberto carlos 3. Agree with holding statin 4. Workup of acute pancreatitis per Dr. De La Rosa 5. Thank you for this consult. We will see her on an as needed basis, please feel free to call us for any question Past Medical History Past Medical History: Hypertension History of Any Multi-Drug Resistant Organisms: None Reported Past Surgical History: Orthopedic Surgery Additional Past Surgical History / Comment(s): LEFT SHOULDER SURGERY Past Anesthesia/Blood Transfusion Reactions: No Reported Reaction Past Psychological History: No Psychological Hx Reported Past Alcohol Use History: Occasional Past Drug Use History: None Reported - Past Family History Mother Family Medical History: Cancer Medications and Allergies Home Medications Medication Instructions Recorded Confirmed Type Aspirin EC [Ecotrin Low Dose] 81 mg PO DAILY 04/01/23 04/01/23 History Lovastatin [Mevacor] 40 mg PO HS 04/01/23 04/01/23 History Vit C/E/Zn/Coppr/Lutein/Zeaxan 1 cap PO BID 04/01/23 04/01/23 History [Preservision Areds 2 Softgel] atenoloL [Tenormin] 25 mg PO BID 04/01/23 04/01/23 History Allergies Allergy/AdvReac Type Severity Reaction Status Date / Time No Known Allergies Allergy Verified 04/01/23 11:56 Physical Exam Vitals: Vital Signs Temp Pulse Resp BP BP Pulse Ox 04/03/23 08:00 98.2 F 70 18 135/68 96 04/03/23 04:14 98.1 F 63 15 125/64 96 04/02/23 19:48 98.0 F 68 18 126/70 98 04/02/23 15:00 98.1 F 65 16 161/72 98 Intake and Output 04/02/23 04/03/23 04/03/23 22:59 06:59 14:59 Intake Total 236 Balance 236 Intake: Oral 236 Other: # Voids 1 2 Results 04/03/23 05:26 04/03/23 05:26 Cardiac Enzymes 04/03/23 Range/Units 05:26 AST 67 H (13-35) U/L CBC 04/03/23 Range/Units 05:26 WBC 5.41 (4.50-10.00) X 10*3/uL RBC 3.71 L (4.10-5.20) X 10*6/uL Hgb 11.2 L (12.0-15.0) d/dL Hct 34.3 L (37.2-46.3) % Plt Count 184 (140-440) X 10*3/uL Comprehensive Metabolic Panel 04/03/23 Range/Units 05:26 Sodium 143 (135-145) mmol/L Potassium 4.1 (3.5-5.5) mmol/L Chloride 106 (96-109) mmol/L Carbon Dioxide 29.6 (21.6-31.8) mmol/L BUN 6.5 L (9.0-27.0) mg/dL Creatinine 0.6 (0.6-1.5) mg/dL Glucose 85 (70-110) mg/dL Calcium 9.0 (8.7-10.3) mg/dL AST 67 H (13-35) U/L ALT 93 H (8-44) U/L Alkaline Phosphatase 130 H (41-126) U/L Total Protein 5.5 L (6.2-8.2) d/dL Albumin 3.7 L (3.8-4.9) d/dL Current Medications Generic Name Dose Route Start Last Admin Trade Name Freq PRN Reason Stop Dose Admin Aspirin 81 mg 04/02/23 09:00 04/03/23 09:31 Aspirin 81 Mg PO 81 mg DAILY HOMA Administration Atenolol 25 mg 04/01/23 21:00 04/03/23 09:31 Atenolol 25 Mg Tab PO 25 mg BID HOMA Administration Sodium Chloride 1,000 mls @ 75 mls/hr 04/01/23 08:15 04/03/23 00:12 Saline 0.9% IV Not Given .[id number] HOMA Morphine Sulfate 4 mg 04/01/23 08:02 Morphine Sulfate 4 Mg/Ml Syringe IV Q4HR PRN Severe Pain (Scale 7 to 10) Naloxone HCl 0.2 mg 04/01/23 08:02 Naloxone 0.4 Mg/Ml 1 Ml Vial IV Q2M PRN Opioid Reversal Ondansetron HCl 4 mg 04/01/23 08:02 Ondansetron 4 Mg/2 Ml Vial IVP Q8HR PRN Nausea And Vomiting Pantoprazole Sodium 40 mg 04/01/23 09:00 04/03/23 09:31 Pantoprazole 40 Mg/10 Ml Vial IV 40 mg DAILY HOMA Administration Intake and Output 04/02/23 04/03/23 04/03/23 22:59 06:59 14:59 Intake Total 236 Balance 236 Intake: Oral 236 Other: # Voids 1 2 04/03/23 05:26 04/03/23 05:26
--- NOTE | 2023-04-03 11:15 | P.PN ---
Subjective Progress Note Date: 04/03/23 CHIEF COMPLAINT: Gallstone pancreatitis HISTORY OF PRESENT ILLNESS: Patient's pain has improved. She is up and ambulating in the room. She is scheduled for an MRCP today. Afebrile. WBC 5.4 Hgb 11.2 total bilirubin 0.4 LFTs trending downwards alk phos from the same at 1:30 last lipase 432 PHYSICAL EXAM: VITAL SIGNS: Reviewed GENERAL: Well-developed in no acute distress. HEENT: No sclera icterus. Extraocular movements grossly intact. Moist buccal mucosa. Head is atraumatic, normocephalic. Hears conversational speech. No nasal drainage. NECK: Supple without lymphadenopathy. CHEST: Non-labored respirations and equal bilateral excursions. CARDIOVASCULAR: Palpable 2+ radial pulses. ABDOMEN: Soft. Nondistended. Nontender MUSCULOSKELETAL: No clubbing or cyanosis. NEUROLOGIC: No focal or lateralizing signs. Cranial nerves II through XII grossly intact. PSYCH: Appropriate affect. Alert and oriented to person, place and time. SKIN: Well perfused. Good skin turgor. ASSESSMENT: 1. Acute pancreatitis likely gallstone induced given clinical picture PLAN: -MRCP scheduled for today -Further recommendations forthcoming per MRCP results -Consult cardiology for cardiac risk assessment for possible cholecystectomy -Continue clear liquid diet Physician Driver Trainer note has been reviewed by physician. Signing provider agrees with the documented findings, assessment, and plan of care. Objective - Vital Signs Vital signs: Vital Signs Temp 98.2 F 04/03/23 08:00 Pulse 70 04/03/23 08:00 Resp 18 04/03/23 08:00 BP 135/68 04/03/23 08:00 Pulse Ox 96 04/03/23 08:00 FiO2 Intake & Output 04/02/23 04/03/23 04/03/23 18:59 06:59 18:59 Intake Total 536 Balance 536 Intake: Oral 536 Other: # Voids 2 2 - Labs CBC & Chem 7: 04/03/23 05:26 04/03/23 05:26 Labs: Abnormal Lab Results - Last 24 Hours (Table) 04/02/23 04/03/23 04/03/23 Range/Units 05:12 05:26 05:26 RBC 3.71 L (4.10-5.20) X 10*6/uL Hgb 11.2 L (12.0-15.0) d/dL Hct 34.3 L (37.2-46.3) % BUN 6.5 L (9.0-27.0) mg/dL BUN/Creatinine Ratio 10.83 L (12.00-20.00) Ratio AST 67 H (13-35) U/L ALT 93 H (8-44) U/L Alkaline Phosphatase 130 H (41-126) U/L Total Protein 5.5 L (6.2-8.2) d/dL Albumin 3.7 L (3.8-4.9) d/dL Amylase 310 H* (23-121) U/L
[2023-04-03 15:59] VITALS: BP 135/70; PULSE 64; TEMP 98
--- NOTE | 2023-04-03 18:36 | P.DS ---
Providers Date of admission: 04/02/23 18:30 Expected date of discharge: 04/03/23 Attending physician: Sharon De La Rosa Consults: 04/01/23 08:02 Consult Physician Urgent Consulting Provider: Makayla Brannon Consult Reason/Comments: Pancreatitis, please see CT Do you want consulting provider notified?: Yes 04/02/23 10:09 Consult Physician Routine Consulting Provider: Anju Clancy Consult Reason/Comments: elevated liver enzymes pancreatitis Do you want consulting provider notified?: Yes 04/03/23 09:08 Consult Physician Routine Consulting Provider: Gavin Brian Consult Reason/Comments: cardiac risk assessment Do you want consulting provider notified?: Yes Primary care physician: Constance Olson [place] [facility] Course: Diagnosis on discharge: Abdominal pain, with elevated AST ALT, alkaline phosphatase, and significant elevation in lipase. Likely diagnosis is acute pancreatitis related to common bile duct stone. No stone is identified on computed tomography scan, ultrasound of the abdomen was ordered. Recheck labs in a.m.. Other differential diagnosis include common bile duct malignancy, abdominal abscess, but those are much less likely, will continue to follow closely with labs and possible repeat computed tomography scan of the abdomen. Acute cholecystitis Underlying history of hypertension, maintained on Tenormin 25 mg by mouth twice a day we will continue Underlying history of hyperlipidemia maintained on lovastatin Will hold at this time Previous history of bilateral carotid stenosis Previous history of vitamin D deficiency Previous history of osteoporosis Hospital course: Judith Patel, is a 77-year-old female who presented to [facility] emergency room with a chief complaint of abdominal pain. She was evaluated in the emergency room vital examination on presentation revealed a temperature of 97.7 pulse 61 respiration 16 blood pressure 136/63 pulse ox 98% on room air Laboratory data revealed a white blood count of 6.8 hemoglobin 11.8 platelet count 196 BUN 22 creatinine 0.65 AST elevated at 217 ALT 77 alkaline phosphatase 143 and lipase level was significantly elevated at more than 20,000 Testing in the emergency room revealed computed tomography scan of the abdomen and pelvis revealed dilated bowel loop in the right upper quadrant. Patient was admitted to medical floor for further evaluation and treatment On 04/02/2023 patient is alert and oriented 3. Patient denies any further episodes of abdominal discomfort has been tolerating a clear liquid diet at the nausea and vomiting. Patient reports she had normal bowel movement burning with urination. Repeat labs this a.m. revealing AST 105, ALT 121 and phosphatase 128. Lipase 432. Surgical services are following. Gallbladder ultrasound completed and showing minimum thickening of gallbladder wall correlate for acute cholecystitis. At this time due to continued elevated liver enzymes will order MRCP and consult GI services On 04/03/2023 patient was seen and examined on the medical floor she is alert and oriented 3 in no apparent distress, she is feeling well and denies any symptoms at this time there is no fever or chills no headache or dizziness no chest pain no shortness of breath no cough no nausea or vomiting no abdominal pain no diarrhea and no urinary symptoms. Patient is tolerating full liquid diet well at this time. She underwent MRCP today, unfortunately results are still pending, patient is really anxious to go home today, she is feeling well without any symptoms and does not want to stay an extra day in the hospital. At this time will discharge the patient to home, she was instructed to advance her diet very slowly, and to return to the hospital if having new episodes of abdominal pain nausea or vomiting. Otherwise patient can follow-up with her primary care physician Dr. Olson for follow-up on results of the MRCP, depending on the results and patient's symptoms she may need to be referred to gastroenterology or general surgery. Plan - Discharge Summary New Discharge Prescriptions: Continue atenoloL [Tenormin] 25 mg PO BID Aspirin EC [Ecotrin Low Dose] 81 mg PO DAILY Vit C/E/Zn/Coppr/Lutein/Zeaxan [Preservision Areds 2 Softgel] 1 cap PO BID Discontinued Lovastatin [Mevacor] 40 mg PO HS Discharge Medication List Aspirin EC [Ecotrin Low Dose] 81 mg PO DAILY 04/01/23 [History] Vit C/E/Zn/Coppr/Lutein/Zeaxan [Preservision Areds 2 Softgel] 1 cap PO BID 04/01/23 [History] atenoloL [Tenormin] 25 mg PO BID 04/01/23 [History] Follow up Appointment(s)/Referral(s): Constance Olson MD [Primary Care Provider] - 1-2 days
--- NOTE | 2023-04-04 23:28 | MR ---
EXAMINATION TYPE: MR MRCP DATE OF EXAM: 04/03/2023 5:15 PM CLINICAL INDICATION:Female, 77 years old with history of elevated liver enzymes and lipase; , Elevate d liver enzymes and lipase COMPARISON: CT abdomen pelvis 04/01/2023 TECHNIQUE: Multi planar, T2-weighted imaging with and without fat saturation and chemical shift imag ing was performed of the abdomen. Then, heavily T2 weighted imaging (half-Fourier acquisition single- shot turbo spin-echo) was utilized in order to study the biliary system. Maximum intensity projectio n images were reconstructed from the original data of the biliary tree. 3D images were created on [employer] work station. No Gadolinium given. FINDINGS: Lower Thorax: No evidence for acute process. Motion limits evaluation. MRCP: * The intrahepatic ducts mild intrahepatic and extrahepatic biliary prominence. * The common bile duct at the level of the pancreatic head measures 5r mm in size. There is a flatte tha appearance of the common bile duct isn't approaches the papilla series 801 image [id number]. Large martin unt of small feces within the second portion duodenum when comparing to prior CT. 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 * The common hepatic duct measures 5 mm in size. * The pancreatic duct is normal. * The gallbladder appears unremarkable. Abdomen: Liver: Unremarkable. Pancreas: Unremarkable. Spleen: Unremarkable. Adrenal glands: Unremarkable. Kidneys: Unremarkable. Stomach and Bowel: Scattered colonic diverticula present. Third portion duodenal diverticulum present . Peritoneum: No evidence of pneumoperitoneum or free fluid. Vasculature: Unremarkable. No aortic aneurysm. Musculoskeletal: The osseous structures appear intact. Degeneration changes of the spine with S-shape d scoliosis. Lymph Nodes: No gross evidence for lymphadenopathy. Abdominal wall: Unremarkable. IMPRESSION: 1. Flattened appearance of the distal common duct as it approaches the papilla. There is mild intrah epatic and extrahepatic biliary dilation which could be a result of this. When comparing to prior CT on 04/01/2023. There is a large amount of small bowel feces in the second portion of duodenum. This is felt to be impressing upon the papilla. 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 2. No evidence to suggest choledocholithiasis, or biliary ductal dilatation. 3. Colonic diverticulosis.
== END 2023-04-03 18:55 | disposition home or self-care (01) | DRG 439 ==
LOC: EC 00:31 → 6NMEDSUR 08:02 → OBSVTOIN 04-02 18:30
PROVIDERS: ADMIT Internal Medicine; ATTEND Internal Medicine
DX: K85.10 Biliary acute pancreatitis without necrosis or infection (principal); K81.0 Acute cholecystitis; M81.0 Age-related osteoporosis without current pathological fracture; E55.9 Vitamin D deficiency, unspecified; I65.23 Occlusion and stenosis of bilateral carotid arteries; I10 Essential (primary) hypertension; E78.5 Hyperlipidemia, unspecified; Z79.82 Long term (current) use of aspirin; Z79.899 Other long term (current) drug therapy; Z59.00 Homelessness unspecified
CPT/HCPCS: 36415; 74177; 74181; 76705; 80053; 82150; 83605; 83615; 83690; 84484; 85025; 85610; 85730; 93005; 96361; 96374; 99285

== ENCOUNTER → 2023-05-23 | Outpatient (CLI) | payer MEDICARE, BC ==
--- NOTE | 2023-05-23 09:43 | XR ---
EXAMINATION TYPE: XR cervical spine comp DATE OF EXAM: 05/23/2023 COMPARISON: 04/02/2010 HISTORY: Pain TECHNIQUE: Four views are submitted. FINDINGS: The odontoid is intact. There are no compression deformities. The prevertebral soft tissue structur es are within normal limits. Great 1 anterolisthesis C3-4 and C7-T1. Severe degenerative disc diseas e C5-6 and C6-C7. Multilevel facet arthropathy. Lung apices clear. There is bilateral foraminal encro achment at level C3-T1. IMPRESSION: 1. Multilevel facet arthropathy with severe degenerative disc disease C5-6 and C6-C7. 2. Multilevel bilateral foraminal encroachment recommend MRI. 3. Grade 1 anterolisthesis C3-4 and C7-T1..
== END | disposition home or self-care (01) ==
LOC: RADXRMAIN 09:21
PROVIDERS: ATTEND Family Medicine
DX: M47.812 Spondylosis without myelopathy or radiculopathy, cervical region (principal); M50.322 Other cervical disc degeneration at C5-C6 level; M43.13 Spondylolisthesis, cervicothoracic region; R51.9 Headache, unspecified
CPT/HCPCS: 72050

== ENCOUNTER → 2024-01-30 | Outpatient (CLI) | payer MEDICARE, BC ==
[2024-01-30 09:53] LABS: African American GFR (CKD) >90 (>60 ml/min/1.73 sqM); Blood Urea Nitrogen 19 mg/dL (7-17); Non-African American GFR(CKD) 86 (>60 ml/min/1.73 sqM)
--- NOTE | 2024-01-30 11:23 | CT ---
EXAMINATION TYPE: CT abdomen pelvis w con CT DLP: 482 mGycm, Automated exposure control for dose reduction was used. DATE OF EXAM: 01/30/2024 11:13 AM COMPARISON: CT abdomen pelvis most recent from 04/01/2023 . CLINICAL INDICATION:Female, 78 years old with history of RUQ pain; right flank, RLQ pain and right in guinal pain x9 months TECHNIQUE: Standard CT of the abdomen and pelvis following the administration of 100 cc of Isovue 3 00 IV contrast material and oral contrast. Coronal and sagittal reformats were performed. FINDINGS: LOWER CHEST: Minimal right lower lobe dependent subsegmental atelectasis. ABDOMEN LIVER: Unremarkable GALLBLADDER AND BILE DUCTS: Unremarkable. PANCREAS: Unremarkable. SPLEEN: Unremarkable. ADRENAL GLANDS: Unremarkable. KIDNEYS AND URETERS: No evidence of hydronephrosis or renal calculus. The kidneys enhance symmetrical ly. Contrast is demonstrated within both collecting systems on the delayed phase. PELVIS BLADDER: Unremarkable REPRODUCTIVE: Unremarkable. ABDOMEN & PELVIS STOMACH AND BOWEL: Stomach is unremarkable. There is redemonstration of a diverticulum involving the second/third portion the duodenum. No focal bowel wall thickening or surrounding inflammatory changes . Mild amount of stool is present within the colon. Scattered colonic diverticula. Enteric contrast r eaches the splenic flexure. The appendix is not identified however no significant inflammatory change s within the right lower quadrant. No evidence of bowel obstruction. PERITONEUM: No evidence of pneumoperitoneum or free fluid. VASCULATURE: Mild to moderate atherosclerotic calcifications are present throughout the abdominal aor ta and its branches. No evidence of aortic aneurysm. MUSCULOSKELETAL: No acute osseous abnormalities. Mild to moderate osteoarthritic changes of the right hip. No aggressive osseous lesions. Mild S-shaped scoliotic curvature of the visualized thoracolumba r spine. Mild multilevel degenerative disc disease. LYMPH NODES: No gross evidence for lymphadenopathy. SOFT TISSUE/ABDOMINAL WALL: Tiny fat filled umbilical hernia. No inguinal hernia is identified. IMPRESSION: 1. No CT evidence for an acute abdominal/pelvic process. 2. Enterocolonic diverticulosis without evidence for acute diverticulitis.
== END | disposition home or self-care (01) ==
LOC: RADCTMAIN 09:04
PROVIDERS: ATTEND Family Medicine
DX: K57.30 Diverticulosis of large intestine without perforation or abscess without bleeding (principal)
CPT/HCPCS: 82565; 84520; 74177; 36415; Q9967